=== PATIENT | female | born 1960 | race Caucasian/White ===

== ENCOUNTER → 2024-11-30 | Outpatient (CLI) | payer MEDICARE, MEDICAID, SELFPAY ==
--- NOTE | 2024-11-30 08:21 | US_ITS ---
PROCEDURE: ABDOMEN LIMITED 11/30/2024 REASON FOR EXAM: NAUSEA, EPIGASTRIC PAIN TECHNIQUE: ABDOMEN LIMITED COMPARISON: None. FINDINGS: Liver: 14.2 cm. Normal echogenicity. No focal abnormalities. Gallbladder: Surgically absent. Common bile duct: 5 mm Pancreas: Benign fatty replacement. Kidneys: The right kidney measures 10.7 x 6.6 x 6.1 cm. The renal cortex measures 1.6 cm in thickness. There are no focal abnormalities. There is no hydronephrosis. Aorta: Unremarkable as seen. IVC: Unremarkable as seen. US/Abdomen Limited IMPRESSION: Status post cholecystectomy. Reading Location: [id number]
== END | disposition home or self-care (01) ==
DX: R10.13 Epigastric pain (principal); R11.0 Nausea
CPT/HCPCS: 76705

== ENCOUNTER 2024-12-08 15:10 | Emergency (ER) | payer MEDICARE, MEDICAID, SELFPAY ==
[2024-12-08] VITALS (7 sets, daily range): BP systolic 91–138; BP diastolic 63–95; PULSE 76–92; RESP 18–23; TEMP 36.8–36.9; O2SAT 95–99
--- NOTE | 2024-12-08 15:48 | EX.ED.DYSGE1 ---
HPI History of Present Illness Chief Complaint: Abn Labs Detail of Chief Complaint: Hypomagnesemia, 0.9 Informant: patient and SNF (Labs from December 05 and today were available and sent through the emergency room) Onset/Context/Timing Onset: Today (Magnesium 0.9. On December 05 sodium, potassium and chloride were all low. Potassium is normal today.) Context: - (Not applicable) Timing: Continuous (Presumed) Quality: Fatigued lack of energy Location: Electrolytes and generalized Current Severity: Severe (If magnesium is truly 0.9 this is considered severe.) Maximum Severity: Severe Worsened by: Patient is on no diuretic. Relieved by: Not applicable Associated Symptoms Associated Symptoms: Fatigue Narrative Narrative: Patient is a 63-year-old woman. She recently had left hip surgery. She presents from [facility] because of magnesium of 0.9. Her only complaint is she feels fatigued. She does have some swelling of her feet. When asked if she has been sitting a lot her response was there is nothing else to do with the longterm . HEENT review of system questions negative. Cardiac and pulmonary negative. Abdomen negative. Prior similar symptoms: No Recent Illness/Hospitalization: Yes (Left hip surgery) [facility] Home Medications ?Medication ?Instructions ?Recorded ?Last Taken ?Type albuterol sulfate 2.5 mg/3 mL 2.5 mg inhalation Q6H 11/24/24 Unknown History (0.083 %) solution for nebulization aripiprazole 5 mg tablet 5 mg PO QDAY 11/24/24 Unknown History atorvastatin 10 mg tablet (Lipitor) 10 mg PO QHS 11/24/24 Unknown History diclofenac sodium 1 % topical gel 2 g topical ONCE 11/24/24 Unknown History diphenhydramine HCl 25 mg capsule 25 mg PO QHS PRN 11/24/24 Unknown History (Benadryl) docusate sodium 100 mg capsule 100 mg PO QDAY 11/24/24 Unknown History latanoprost 0.005 % eye drops 1 drp ophthalmic (eye) QDAY 11/24/24 Unknown History lidocaine 1.8 % topical patch 1 patch topical QDAY 11/24/24 Unknown History magnesium oxide 400 mg PO QDAY 11/24/24 Unknown History melatonin 5 mg capsule mg PO 11/24/24 Unknown History pantoprazole 40 mg tablet,delayed 40 mg PO BID 11/24/24 Unknown History release polyethylene glycol 3350 17 4 g PO ONCE 11/24/24 Unknown History gram/dose oral powder (Miralax) Allergy/AdvReac Type Severity Reaction Status Date / Time aspirin Allergy Intermediate Other Verified 11/24/24 13:04 chlorpromazine (From Allergy Intermediate Other Verified 11/24/24 13:04 Thorazine) codeine Allergy Intermediate Other Verified 11/24/24 13:04 meperidine (From Demerol) Allergy Intermediate Other Verified 11/24/24 13:04 Surgical History History of cholecystectomy H/O foot surgery H/O: hysterectomy H/O eye surgery History of bilateral hip replacements Social History Smoking Status: Current some day smoker tobacco type: cigarettes alcohol intake: never ROS ROS ED Constitutional Constitutional ED: Denies chills, fever(s), subjective, sweats or weight loss Eyes Eyes: Denies blurry vision or change in vision ENT ENT ED: Denies rhinorrhea or sore throat Cardiovascular Cardiovascular: Denies chest pain or palpitations Respiratory/Chest Respiratory/Chest: Denies cough, dyspnea or dyspnea on exertion Gastrointestinal Gastrointestinal: Denies abdominal pain, constipation, diarrhea, nausea or vomiting Genitourinary Genitourinary ED: Denies dysuria, hematuria or urinary frequency Musculoskeletal Musculoskeletal: Denies arthralgias or myalgias Integumentary Denies rash Neurologic Neurologic: Denies headache(s), paresthesias or weakness Hematologic/Lymphatic Hematologic/Lymphatic: Reports systems reviewed and no addt'l complaints, except as documented EXAM Physical Exam Const Vital Signs: 12/08/24 15:12 12/08/24 15:12 12/08/24 16:11 Temperature 98.3 F Temperature Source Oral Pulse Rate 76 88 Respiratory Rate 18 23 H Respiratory Effort Normal Non-Labored Respiratory Pattern Normal Blood Pressure 138/74 H 125/95 H Blood Pressure Mean 95 105 Pulse Ox 99 95 Oxygen Delivery Method Room Air 12/08/24 17:00 12/08/24 18:00 Temperature Temperature Source Pulse Rate 92 92 Respiratory Rate 23 H 21 H Respiratory Effort Respiratory Pattern Blood Pressure 122/72 H 129/63 H Blood Pressure Mean 88 85 Pulse Ox 95 98 Oxygen Delivery Method Positive well nourished and well developed General Appearance ED: well developed; Negative for pallor HEENT Reports moist mucous membranes HEENT Narrative: Head is atraumatic and normocephalic. Ears normal. Nares patent. Eyes PERRL and EOMs intact bilaterally General Eye ED: Negative for pale conjunctiva or scleral icterus Neck no lymphadenopathy and no JVD Resp normal respiratory effort Cardio regular rate, regular rhythm, S1 normal heart sound, S2 normal heart sound and no murmurs GI normal to inspection, nondistended, normoactive bowel sounds, non-tender, non-distended and no masses; Negative for hepatosplenomegaly Extremity normal to inspection Extremity Narrative: Mild anemia bilaterally. The left lower extremity is slightly increased in size compared to the right. This is the site she had surgery on. This is expected. There is no tenderness. There is no leg vein distention. There is no palpable cords tenderness on the distribution of deep venous system. Neuro oriented x3 and CN's II-XII intact bilaterally Sensorium / Orientation: alert Motor Exam: strength 5/5 throughout Psych mental status grossly normal Skin no rashes or lesions noted, no wounds and skin turgor normal General Skin Exam: Negative for jaundice or pallor MDM MDM Lab Data Attestation: I reviewed the patient's lab results. Lab results narrative: Comprehensive metabolic panel reveals hyponatremia and hypochloremia. Potassium is normal at 4.0. Renal function is normal. Magnesium is 1.0. TSH was obtained because of fatigue weight gain. Lower end of normal 1.41. Labs: Laboratory Results - last 24 hr 12/08/24 15:42 Sodium 130 L Potassium 4.0 Chloride 96 L Carbon Dioxide 22.3 Anion Gap 12 BUN 13 Creatinine 0.66 L Est GFR (MDRD) Non-Af 97 BUN/Creatinine Ratio 19.7 Glucose 99 Calcium 8.9 Magnesium 1.0 L Total Bilirubin 0.22 AST 18 ALT 11 Alkaline Phosphatase 169 H Total Protein 7.4 Albumin 3.6 Globulin 3.8 Albumin/Globulin Ratio 0.9 TSH 1.410 EKG Initial EKG: Attestation: I personally reviewed and interpreted this EKG as follows: Interpretation: Sinus Rhythm (Rate is 87. There is premature atrial beat noted. IA interval 234 ms. Cures duration 84 ms. QT duration 260 ms. [place] is normal. Patient has an RR prime in V1. There is some artifact noted.) Treatment and Re-Evaluation :: Will treat patient's hypomagnesemia with infusion of 4 g and 128 mg of magnesium chloride p.o. as well. Comments:: Plan is to discharge with a prescription for mag sulfate capsules twice daily and repeat magnesium in 3 to 5 days. Discharge Plan Triage Chief Complaint: Abn Labs ED Provider: Matthew Guardado Dx/Rx/DC Orders Clinical Impression: Hypomagnesemia, Hyponatremia Instructions: Hypomagnesemia Dc Prescriptions: No Action albuterol sulfate 2.5 mg /3 mL (0.083 %) solution for nebulization 2.5 mg inhalation Q6H aripiprazole 5 mg tablet 5 mg PO QDAY atorvastatin [Lipitor] 10 mg tablet 10 mg PO QHS diphenhydramine HCl [Benadryl] 25 mg capsule 25 mg PO QHS PRN diclofenac sodium 1 % gel 2 g topical ONCE Rx Instructions: apply to single elbow, wrist or hand; for hand includes palm/fingers/back of hand docusate sodium 100 mg capsule 100 mg PO QDAY latanoprost 0.005 % drops 1 drp ophthalmic (eye) QDAY lidocaine 1.8 % adhesive patch,medicated 1 patch topical QDAY Rx Instructions: leave on most painful area for up to 12 hrs magnesium oxide 400 mg magnesium capsule 400 mg PO QDAY melatonin 5 mg capsule PO polyethylene glycol 3350 [Miralax] 17 gram/dose powder 4 g PO ONCE pantoprazole 40 mg tablet,delayed release (DR/EC) 40 mg PO BID Primary Care Provider: Care Physician,No Primary Referrals: Care Physician,No Primary [Primary Care Provider] - Activity Restrictions/Additional Instructions: 1. Increase magnesium oxalate from once daily to once twice daily. 2. Recommend repeating magnesium level in 4 to 5 days Print Language: Gabonese Disposition Disposition: Home, Self Care
[2024-12-08 16:47] LABS: AST(SGOT) 18 U/L (<=31); Alanine Aminotransfer ALT/SGPT 11 U/L (<=34); Albumin, Serum 3.6 g/dL (3.4-4.8); Alkaline Phosphatase 169 U/L (35-104); Anion Gap 12 (5-15); BUN 13 mg/dL (4-19); BUN/Creat Ratio 19.7 RATIO (10-20); Calcium,Total 8.9 mg/dL (7.6-11.0); Carbon Dioxide 22.3 mmol/L (21.0-32.0); Chloride 96 mmol/L (98-108); Globulin 3.8 g/dL (2.2-4.2); Glucose 99 mg/dL (70-99); Magnesium 1.0 mg/dL (1.5-2.2); Potassium 4.0 mmol/L (3.3-5.1)
[2024-12-08] MEDS: Magnesium Chloride 64 MG Delay Rel.Tablet 128 MG PO (17:02)
[2024-12-08] MEDS: Magnesium Sulfate 4gm/100mL 4 GM/100 ML IV.SOLN. IV (17:50)
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
== END 2024-12-08 22:37 | disposition home or self-care (01) ==
PROVIDERS: Emergency Provider Emergency Medicine; Referring Provider Emergency Medicine; Visit Provider Emergency Medicine
DX: E83.42 Hypomagnesemia (principal); E87.1 Hypo-osmolality and hyponatremia; F17.210 Nicotine dependence, cigarettes, uncomplicated
CPT/HCPCS: 80053; 83735; 84443; 93005; 96365; 96366; 99285; A4216

== ENCOUNTER → 2024-12-19 | Outpatient (CLI) | payer MEDICARE, MEDICAID, SELFPAY ==
[2024-12-19 12:10] LABS: Barbiturate Urine NEGATIVE (< 200 ng/mL); Benzodiazepine Urine NEGATIVE (< 200 ng/mL); PCP Urine NEGATIVE (< 25 ng/mL); THC Urine PRESUMPTIVE POSITIVE (< 50 ng/mL)
== END | disposition home or self-care (01) ==
LOC: LAB 10:56
PROVIDERS: Referring Provider Anesthesiology Pain Medicine; Visit Provider Anesthesiology Pain Medicine
DX: F11.20 Opioid dependence, uncomplicated (principal)
CPT/HCPCS: 80307

== ENCOUNTER → 2025-03-07 | Outpatient (CLI) | payer MEDICARE, MEDICAID, SELFPAY | END | disposition home or self-care (01) | LOC: MRI 13:33 | DX: M54.50 Low back pain, unspecified (principal) | CPT/HCPCS: 72148 ==